=== PATIENT | female | born 2000 | race Caucasian/White ===

== ENCOUNTER 2025-02-19 13:43 | Outpatient (CLI) | payer OTHER, SELFPAY ==
--- NOTE | ~2025-02-19 | US_ITS ---
EXAMINATION: US OB /maternal detail DATE: 02/20/2025 0:55 CDT INDICATION: Anatomy scan TECHNIQUE: Real-time transabdominal obstetric ultrasound. FINDINGS: 1 para 0 Last menstrual period is given as 09/20/2024. Estimated date of delivery by last menstrual period is 06/27/2025 There is a single intrauterine gestation in vertex presentation. The placenta is posterior. The tip of the placenta measures 19 mm from the internal cervical os, suggesting a low-lying placenta . The cervix measures 3.8 cm in length. cardiac activity and movement is noted with a heart rate of 154 beats per minute. Anatomic parameters are as follows The bladder is visualized and is unremarkable. A three-vessel cord is present. Cord insertion is identified on the midline of the abdomen. Bilateral kidneys are visualized without hydronephrosis - the renal pelvis measures 2.7 and 3.9 mm, respectively. Cine views of the diaphragm demonstrate its continuity. The cervical, thoracic and lumbar spines are covered in their entirety. choroid plexi are visualized, and unremarkable. Lateral ventricles are visualized, and are unremarkable. The falx is visualized. The cerebellum is visualized (best on cine view) measuring 20.2 mm, and is sonographically unre markable. The cisterna magna measures 3.2 mm in anterior to posterior dimension (normal measurement is 2 to 10 mm). The nuchal fold measures 4.5 mm (greater than 6 mm is considered abnormal). Cine view of the four-chamber heart is visualized and is anatomic. Both the right and left ventricular outflow tracts are identified (best on cine view) and are anatomi c. Limited views of the arms, hands, legs and feet were performed and appear grossly unremarkable. Static images of the upper lip and nose are continuous. The following biometric data were obtained: Biparietal diameter (BPD): 4.7 cm; head circumference (HC): 17.3 cm; abdominal circumference (AC): 15.4 cm; femur length (FL): 3.3 cm. These measurements are concordant. Estimated weight is 357.5 g +/- 54 g, which correlates with the 66th percentile when 07/07/2025 is used as estimated date of delivery. As single measurements, these parameters are each equal to the following estimated gestational ages: BPD: 20 weeks 1 day. HC: 19 weeks 6 days. AC: 20 weeks 4 days. FL: 20 weeks 4 days. estimated gestational age based solely on measurements from this exam is 20 weeks 2 days +/- 1 week 3 days. IMPRESSION: Single intrauterine gestation with an approximate gestational age of 20 weeks and 2 days. Estimated d ue date by ultrasound is 07/07/2025. A low-lying placenta is visualized for which follow-up is recommended. Anatomy scan was performed and is within normal limits, as detailed above. The cervical length measures 3.8 cm Reviewed, dictated and finalized at location A. IMPRESSION: Single intrauterine gestation with an approximate gestational age of 20 weeks a nd 2 days. Estimated due date by ultrasound is 07/07/2025. A low-lying placenta is visualized for which follow-up is recommended. Anatomy scan was performed and is within normal limits, as detailed above. The cervical length measures 3.8 cm
== END 2025-02-19 13:44 | disposition home or self-care (01) ==
LOC: MICIMG 13:44
PROVIDERS: PCP Obstetrics & Gynecology; Visit Provider Obstetrics & Gynecology
DX: Z36.9 Encounter for antenatal screening, unspecified (principal); Z3A.00 Weeks of gestation of pregnancy not specified
CPT/HCPCS: 76805